=== PATIENT | female | born 2000 | race African-American/Black ===

== ENCOUNTER 2021-03-19 00:42 | Emergency (ER) | payer BC, SELFPAY ==
[2021-03-19 00:50] VITALS: BP 114/65; PULSE 87; RESP 18; TEMP 36.8; O2SAT 100
[2021-03-19] MEDS: ONDANSETRON INJ 4 MG/2 ML VIAL IV PUSH (01:15)
[2021-03-19] MEDS: SODIUM CHLORIDE 0.9% IV 1,000 ML 999 ML IV CONT (01:15)
[2021-03-19 01:29] LABS: Basophils Percent Auto 0.4 % (0.2-1.2); Eosinophils Absolute Auto 0.1 K/mm3 (0-0.3); Eosinophils Percent Auto 1.6 % (0-4.4); Hematocrit 40.3 % (37.0-47.0); Hemoglobin 14.2 g/dL (12.0-15.0); Immature Granulocyte Absolute 0.02 K/mm3 (0.00-0.031); Immature Granulocyte Percent A 0.2 % (0-0.5); Lymphocytes Absolute Auto 0.97 K/mm3 (0.9-3.2); Lymphocytes Percent Auto 10.9 % (18.3-44.2); Mean Corpuscular HGB Conc 35.2 g/dl (32-36); Mean Corpuscular Hemoglobin 27.6 pg (26-34); Mean Corpuscular Volume 78.4 fl (80-100); Mean Platelet Volume 9.9 fl (7.4-10.4); Monocytes Absolute Auto 0.5 K/mm3 (0.1-0.6); Monocytes Percent Auto 5.4 % (2.6-8.5); Neutrophils Absolute Auto 7.2 K/mm3 (1.3-6.7); Neutrophils Percent Auto 81.5 % (45.5-73.1); Platelet Count Result 213 k/mm3 (150-375); Red Blood Count 5.14 M/mm3 (4.2-5.4); White Blood Count 8.9 K/mm3 (4.5-10.0)
[2021-03-19 01:36] LABS: Anion Gap 5 mmol/L (8-16); Blood Urea Nitrogen 18 mg/dL (7-17); Calcium 9.2 mg/dL (8.4-10.2); Carbon Dioxide 27 mmol/L (22-30); Chloride 105 mmol/L (98-107); Estimated Glomerular Filt Rate > 60; Glucose 112 mg/dL (65-105); Potassium 3.5 mmol/L (3.4-5.0); Sodium 137 mmol/L (137-145)
[2021-03-19 02:29] LABS: Add Urine Microscopic? YES; Appearance Urine Cloudy (Clear); Bacteria Urine Trace /hpf; Bilirubin Urine Negative (Negative); Blood Urine Negative (Negative); Color Urine Yellow (Yellow); Glucose Urine UA Negative (Negative); Ketones Urine 1+ mg/dL (Negative); Leukocyte Esterase Ur Negative LEU/UL (Negative); Mucus Urine Few /lpf; Nitrate Urine Negative (Negative); Protein Urine 1+ mg/dL (Negative); RBC Urine 0-2 /hpf (0-2); Specific Grav Ur 1.028 (1.001-1.035); Squamous Epithelial Cell Urine Moderate /hpf (Few); Urobilinogen Urine Negative mg/dL (<2.0)
--- NOTE | 2021-03-19 02:46 | ED.GENADULT ---
HPI - General Adult General Chief complaint: Abdominal Pain Stated complaint: food poisoning Time Seen by Provider: 03/19/21 00:54 History of Present Illness HPI narrative: Patient is a 21-year-old female who presents ER with nausea and vomiting. Symptoms began around 1030. She had eaten some Gring[employer] dip just 4 to 5 hours earlier. She vomited 4 times. She continues to feel nauseous. No abdominal pain. She has been without diarrhea. No known sick contacts. [place] warm and flushed and has had some chills as well. Related Data Allergies Allergy/AdvReac Type Severity Reaction Status Date / Time No Known Allergies Allergy Verified 03/19/21 00:54 Review of Systems Review of Systems: All systems reviewed & are unremarkable except as noted in HPI and below Constitutional: Constitutional: Reports chills, Denies fever(s) and Denies weakness Gastrointestinal: Gastrointestinal: Denies abdominal pain, Denies constipation, Denies diarrhea, Reports nausea and Reports vomiting Genitourinary: Genitourinary: Denies hematuria, Denies nocturia and Denies dysuria PMFSH Past Medical History Medical History (Updated 03/19/21 @ 02:58 by Pritesh Saldivar MD) Healthy female adult Surgical History Surgical History (Updated 03/19/21 @ 02:49 by Pritesh Saldivar MD) No history of previous surgery Social History Social History (Updated 03/19/21 @ 02:49 by Pritesh Saldivar MD) Smoking status: Never smoker Exam Narrative: Exam Narrative: GENERAL: Well-appearing, well-nourished, and in no acute distress. HEAD: Normocephalic, atraumatic. ENT: Mucous membranes moist. CHEST: Clear to auscultation. No respiratory distress. HEART: Regular rate and rhythm. Normal peripheral pulses. ABDOMEN: Soft, nontender, nondistended. EXTREMITIES: Normal range of motion. No edema. SKIN: Warm, dry, no rash. NEURO: Alert and oriented x3. Course Course Emergency Course: Patient feels improved after fluids and IV antiemetics. Discharge home. Vital Signs Vital signs: Vital Signs Temperature 98.3 F 03/19/21 00:50 Pulse Rate 87 03/19/21 00:50 Respiratory Rate 18 03/19/21 00:50 Blood Pressure 114/65 03/19/21 00:50 Pulse Oximetry 100 03/19/21 00:50 Temperature 98.3 F 03/19/21 00:50 Pulse Rate 87 03/19/21 00:50 Respiratory Rate 18 03/19/21 00:50 Blood Pressure 114/65 03/19/21 00:50 Pulse Oximetry 100 03/19/21 00:50 Medical Decision Making Vital Signs Vital Signs: Vital Signs Temperature 98.3 F 03/19/21 00:50 Pulse Rate 87 03/19/21 00:50 Respiratory Rate 18 03/19/21 00:50 Blood Pressure 114/65 03/19/21 00:50 Pulse Oximetry 100 03/19/21 00:50 Temperature 98.3 F 03/19/21 00:50 Pulse Rate 87 03/19/21 00:50 Respiratory Rate 18 03/19/21 00:50 Blood Pressure 114/65 03/19/21 00:50 Pulse Oximetry 100 03/19/21 00:50 Lab Data Result diagrams: 03/19/21 01:16 03/19/21 01:16 Labs: Lab Results 03/19/21 03/19/21 03/19/21 Range/Units 01:16 01:16 02:17 WBC 8.9 (4.5-10.0) K/mm3 RBC 5.14 (4.2-5.4) M/mm3 Hgb 14.2 (12.0-15.0) g/dL Hct 40.3 (37.0-47.0) % MCV 78.4 L (80-100) fl MCH 27.6 (26-34) pg MCHC 35.2 (32-36) g/dl RDW 14.0 (11.5-14.5) % Plt Count 213 (150-375) k/mm3 MPV 9.9 (7.4-10.4) fl Immature Gran % (Auto) 0.2 (0-0.5) % Neut % (Auto) 81.5 H (45.5-73.1) % Lymph % (Auto) 10.9 L (18.3-44.2) % [place] % (Auto) 5.4 (2.6-8.5) % Eos % (Auto) 1.6 (0-4.4) % Baso % (Auto) 0.4 (0.2-1.2) % Lymph # (Auto) 0.97 (0.9-3.2) K/mm3 [place] # (Auto) 0.5 (0.1-0.6) K/mm3 Eos # (Auto) 0.1 (0-0.3) K/mm3 Baso # (Auto) 0.0 (0.0-0.1) K/mm3 Abs Immat Gran (auto) 0.02 (0.00-0.031) K/mm3 Absolute Neuts (auto) 7.2 H (1.3-6.7) K/mm3 Absolute Nucleated RBC 0.0 (0.0-0.012) K/mm3 Nucleated RBC % 0.0 (0.0-0.2) % Sodium 137 (137-145) mmol/L [place]
[2021-03-19 03:11] VITALS: BP 119/77; PULSE 79; RESP 18; O2SAT 97
== END 2021-03-19 03:12 | disposition home or self-care (01) ==
PROVIDERS: Emergency Provider Emergency Medicine
DX: R11.2 Nausea with vomiting, unspecified (principal)
CPT/HCPCS: 36415; 80048; 81001; 85025; 96361; 96374; 99284; J2405; J7030